=== PATIENT | female | born 1985 | race Caucasian/White ===

== ENCOUNTER → 2017-03-06 | Outpatient (REF) | payer BC, SELFPAY | LOC: M LAB REF 16:46 | PROVIDERS: ATTEND Physician Assistant Medical | DX: R30.0 Dysuria (principal) ==

== ENCOUNTER → 2017-03-14 | Outpatient (REF) | payer SELFPAY | LOC: M LAB REF 16:46 | PROVIDERS: ATTEND Physician Assistant | DX: R30.0 Dysuria (principal) ==

== ENCOUNTER → 2017-04-10 | Outpatient (REF) | payer OTHER | LOC: M LAB REF 16:31 | PROVIDERS: ATTEND Physician Assistant | DX: Z20.2 Contact with and (suspected) exposure to infections with a predominantly sexual mode of transmission (principal) ==

== ENCOUNTER → 2018-01-22 | Outpatient (REF) | payer OTHER ==
[2018-01-22 18:02] LABS: APPEARANCE, URINE CLEAR (CLEAR); BACTERIA, URINE AUTO NEGATIVE (NEGATIVE); BILIRUBIN, URINE AUTO NEGATIVE (NEGATIVE); BLOOD, URINE BLOOD 1+ (NEGATIVE); COLOR, URINE STRAW (YELLOW); GLUCOSE, URINE (UA) AUTO NEGATIVE (NEGATIVE); KETONE, URINE AUTO NEGATIVE (NEGATIVE); LEUKOCYTE ESTERASE, URINE AUTO NEGATIVE (NEGATIVE); NITRITE, URINE AUTO NEGATIVE (NEGATIVE); PROTEIN, URINE AUTO NEGATIVE (NEGATIVE); RBC, URINE AUTO 0 /HPF (0-3); SPECIFIC GRAVITY URINE AUTO 1.005 (1.002-1.035); SQUAMOUS EPITHELIAL CELL UR AU 0 /HPF (0-6); UROBILINOGEN, URINE AUTO 0.2 mg/dL (0.0-2.0); WBC, URINE AUTO 1 /HPF (0-3)
== END ==
LOC: M LAB REF 16:30
DX: N39.0 Urinary tract infection, site not specified (principal)
CPT/HCPCS: 81001

== ENCOUNTER 2019-04-10 14:15 | Outpatient (RCR) | payer OTHER | END 2019-04-11 | LOC: M PT 14:15 | PROVIDERS: ATTEND Physician Assistant | DX: M25.511 Pain in right shoulder (principal) | CPT/HCPCS: 97035; 97110; 97140; 97162; G0283 ==

== ENCOUNTER 2019-04-24 14:15 | Outpatient (RCR) | payer OTHER | END 2019-05-11 | LOC: M PT 14:15 | PROVIDERS: ATTEND Physician Assistant | DX: M25.511 Pain in right shoulder (principal) | CPT/HCPCS: 97035; 97140; 97530; G0283 ==

== ENCOUNTER → 2019-06-24 | Outpatient (CLI) | payer OTHER ==
[2019-06-24 15:51] LABS: HEMATOCRIT 38.6 % (36.0-47.0); HEMOGLOBIN 13.2 g/dl (12.0-15.5); MEAN CORPUSCULAR HGB CONC 34.2 g/dl (32.0-36.5); MEAN CORPUSCULAR VOLUME 87.7 fl (80.0-96.0); PLATELET COUNT, AUTOMATED 163 10^3/uL (150-450); WHITE BLOOD COUNT 11.5 10^3/uL (4.0-10.0)
[2019-06-24 16:22] LABS: ALBUMIN 3.4 GM/DL (3.2-5.2); ALT/SGPT 18 U/L (12-78); BILIRUBIN,DIRECT < 0.1 MG/DL (0.0-0.2); BILIRUBIN,TOTAL 0.3 MG/DL (0.2-1.0); BLOOD UREA NITROGEN 8 MG/DL (7-18); CALCIUM LEVEL 8.6 MG/DL (8.5-10.1); CARBON DIOXIDE LEVEL 31 MEQ/L (21-32); CHLORIDE LEVEL 107 MEQ/L (98-107); CREATININE FOR GFR 0.57 MG/DL (0.55-1.30); GLOMERULAR FILTRATION RATE > 60.0 (>60); GLUCOSE, FASTING 97 MG/DL (70-100); PHOSPHORUS LEVEL 3.3 MG/DL (2.5-4.9); POTASSIUM SERUM 3.5 MEQ/L (3.5-5.1); SODIUM LEVEL 143 MEQ/L (136-145); TOTAL PROTEIN 6.7 GM/DL (6.4-8.2)
== END ==
LOC: M LAB 15:22
PROVIDERS: ATTEND Podiatrist Foot & Ankle Surgery
DX: B35.1 Tinea unguium (principal); Z79.899 Other long term (current) drug therapy

== ENCOUNTER → 2021-01-19 | Outpatient (CLI) | payer OTHER ==
[~2021-01-19] MED LIST: E-Z-GAS II EFFERVESCENT PACKET (SODIUM BICARB./CITRIC ACID/SIMETHICONE) As Ordered ONE; E-Z-HD 98% w/w 340GM SUSP BTL As Ordered ONE; E-Z-PAQUE 96% w/w SUSP 176GM BTL As Ordered ONE
--- NOTE | 2021-01-19 16:11 | REP ---
INDICATION: DYSPHAGIA, GERD. COMPARISON: None TECHNIQUE: This procedure was performed by Sonia Tomlinson [facility], under the direct supervision of Dr. Burris. Images were reviewed with Dr. Burris prior to dictation. Liquid barium and gas producing crystals were given in the erect position, as well as liquid barium in the prone oblique position in order to perform a double contrast esophagram examination. FINDINGS: A single view PA chest x-ray is submitted as a systems navigator film. The superior mediastinal structures are midline. The heart size is within normal limits. The lungs are clear. The oral and pharyngeal stages of deglutition were unremarkable. Esophageal transport is prompt and efficient and there is no evidence of esophagitis, stricture, or mucosal ring. There is evidence of a small hiatal hernia. There was no gastroesophageal reflux noted . IMPRESSION: 1. Small hiatal hernia. 0.2 minutes of fluoroscopy time was utilized for this procedure. Some fluoroscopic images are performed with last image hold technology. These images require no additional radiation. <Electronically signed by Sonia Tomlinson > 01/19/21 1417 <Electronically signed by Nino Burris > 01/19/21 1600
== END ==
LOC: M RAD 07:40
PROVIDERS: ATTEND Physician Assistant Medical
DX: R13.10 Dysphagia, unspecified (principal); K21.9 Gastro-esophageal reflux disease without esophagitis; K44.9 Diaphragmatic hernia without obstruction or gangrene

== ENCOUNTER → 2021-02-03 | Outpatient (CLI) | payer OTHER ==
[~2021-02-03] MED LIST changes: -E-Z-GAS II EFFERVESCENT PACKET (SODIUM BICARB./CITRIC ACID/SIMETHICONE) As Ordered ONE; -E-Z-HD 98% w/w 340GM SUSP BTL As Ordered ONE; -E-Z-PAQUE 96% w/w SUSP 176GM BTL As Ordered ONE; +PANT40TA29 PO
== END ==
LOC: M LABSMTC 14:17
PROVIDERS: ATTEND Anesthesiology
DX: Z01.812 Encounter for preprocedural laboratory examination (principal); Z20.822 Contact with and (suspected) exposure to COVID-19

== ENCOUNTER 2021-02-08 12:44 | Day surgery (SDC) | payer OTHER ==
[~2021-02-08] VITALS: Ht 149.9 cm; Wt 98.4 kg
[~2021-02-08 12:44] MED LIST changes: +LIDOCAINE 2% 100MG/5ML SDV (FOR ANES.) As Ordered ONE; +NS 1,000 ML IV ONE; +propofoL 200 MG/20 ML VIAL As Ordered ONE
[2021-02-08] MEDS ORDERED: propofoL 200 MG/20 ML VIAL As Ordered ONE (13:59)
--- NOTE | 2021-02-08 14:25 | ROOR ---
Patient Name: Sharifa Mon Procedure Date: 02/08/2021 1:42 PM Date of : 1985 Age: 35 Room: [facility] Gender: Female Note Status: Finalized Procedure: Upper GI endoscopy Indications: Dysphagia, Dyspepsia Providers: Marco Antonio Renee MD Referring MD: Cammie Chaney Requesting Provider: Medicines: Monitored Anesthesia Care Complications: No immediate complications. Procedure: Pre-Anesthesia Assessment: - Prior to the procedure, a History and Physical was performed, and patient medications and allergies were reviewed. The patient is competent. The risks and benefits of the procedure and the sedation options and risks were discussed with the patient. All questions were answered and informed consent was obtained. Patient identification and proposed procedure were verified by the physician and the nurse in the procedure room. Mental Status Examination: alert and oriented. Airway Examination: normal oropharyngeal airway and neck mobility. Respiratory Examination: clear to auscultation. CV Examination: normal. Prophylactic Antibiotics: The patient does not require prophylactic antibiotics. Prior Anticoagulants: The patient has taken no previous anticoagulant or antiplatelet agents. ASA Grade Assessment: II - A patient with mild systemic disease. After reviewing the risks and benefits, the patient was deemed in satisfactory condition to undergo the procedure. The anesthesia plan was to use monitored anesthesia care (MAC). Immediately prior to administration of medications, the patient was re-assessed for adequacy to receive sedatives. The heart rate, respiratory rate, oxygen saturations, blood pressure, adequacy of pulmonary ventilation, and response to care were monitored throughout the procedure. The physical status of the patient was re-assessed after the procedure. The Endoscope was introduced through the mouth, and advanced to the second part of duodenum. The upper GI endoscopy was accomplished without difficulty. The patient tolerated the procedure well. Findings: No endoscopic abnormality was evident in the esophagus to explain the patient's complaint of dysphagia. Biopsies were obtained from the proximal and distal esophagus with cold forceps for histology of suspected eosinophilic esophagitis. The Z-line was regular and was found 38 cm from the incisors. Scattered mild inflammation characterized by erythema and granularity was found in the gastric antrum. Biopsies were taken with a cold forceps for Helicobacter pylori testing. Verification of patient identification for the specimen was done by the physician and nurse using the patient's name, date and medical record number. Estimated blood loss was minimal. Multiple medium sessile fundic gland polyps with no bleeding and no stigmata of recent bleeding were found in the gastric fundus and in the gastric body. The polyp was removed with a cold biopsy forceps. Resection and retrieval were complete. The duodenal bulb and second portion of the duodenum were normal. Impression: - No endoscopic esophageal abnormality to explain patient's dysphagia. Biopsied. - Z-line regular, 38 cm from the incisors. - Gastritis. Biopsied. - Multiple fundic gland polyps. Resected and retrieved. - Normal duodenal bulb and second portion of the duodenum. Recommendation: - Patient has a contact number available for emergencies. The signs and symptoms of potential delayed complications were discussed with the patient. Return to normal activities tomorrow. Written discharge instructions were provided to the patient. - High fiber diet. - Continue present medications. - Await pathology results. - Follow an antireflux regimen. - Telephone GI clinic for pathology results in 2 weeks. - Perform ambulatory esophageal manometry if symptoms persist. - Return to primary care physician. Procedure Code(s): --- Professional --- 33584, Esophagogastroduodenoscopy, flexible, transoral; with biopsy, single or multiple Diagnosis Code(s): --- Professional --- R13.10, Dysphagia, unspecified K29.70, Gastritis, unspecified, without bleeding K31.7, Polyp of stomach and duodenum R10.13, Epigastric pain CPT copyright 2019 [employer]. All rights reserved. The codes documented in this report are preliminary and upon clerical manager review may be revised to meet current compliance requirements. Marco Antonio Renee MD Marco Antonio Renee MD 02/08/2021 2:25:03 PM Electronically signed by Marco Antonio Renee MD Number of Addenda: 0 Note Initiated On: 02/08/2021 1:42 PM Estimated Blood Loss: Estimated blood loss was minimal.
[2021-02-08 14:50] VITALS: BP 120/60
== END 2021-02-08 14:40 | disposition home or self-care (01) ==
LOC: M OPP 12:44
PROVIDERS: ATTEND Internal Medicine Gastroenterology
DX: K29.70 Gastritis, unspecified, without bleeding (principal); K31.2 Hourglass stricture and stenosis of stomach; R13.10 Dysphagia, unspecified; R10.13 Epigastric pain

== ENCOUNTER → 2021-06-02 | Outpatient (REF) | payer OTHER ==
[~2021-06-02] MED LIST changes: -LIDOCAINE 2% 100MG/5ML SDV (FOR ANES.) As Ordered ONE; -NS 1,000 ML IV ONE; -propofoL 200 MG/20 ML VIAL As Ordered ONE
== END ==
LOC: M WUC 15:46
PROVIDERS: ATTEND Physician Assistant
DX: N39.0 Urinary tract infection, site not specified (principal)